=== PATIENT | female | born 1950 | race Caucasian/White ===

== ENCOUNTER 2017-09-04 06:43 | Day surgery (SDC) | payer MEDICARE, OTHER, MEDICAID ==
[2017-09-04] MEDS: CEFAZOLIN 1 GM/50 ML (PMX) 50 ML IVPB ×2 (09:08→11:00)
[2017-09-04] MEDS: LACTATED RINGER'S 1,000 ML IV (10:30)
[2017-09-04] MEDS: LIDOCAINE 1%/EPI 30 ML INJ (11:00)
[2017-09-04] MEDS: HEPARIN 1000 UNITS/ML 10 ML INJ (11:00)
[2017-09-04] MEDS: POLYMYXIN/BACITRACIN 1L IRRIG IRR (11:00)
[2017-09-04] MEDS: FENTAnyl 50 MCG/ML VIAL (11:00)
[2017-09-04] MEDS: MIDAZOLAM 1 MG/ML 2 ML INJ (11:00)
[2017-09-04] MEDS: SOD CHLORIDE 0.9% 500 ML (11:10)
[2017-09-04] MEDS ORDERED: HYDROCODONE/APAP (5/325) TAB PO (12:00)
== END 2017-09-04 14:34 | disposition home or self-care (01) ==
LOC: SDS 06:43
DX: C50.911 Malignant neoplasm of unspecified site of right female breast (principal); I10 Essential (primary) hypertension; E11.9 Type 2 diabetes mellitus without complications; E78.5 Hyperlipidemia, unspecified
CPT/HCPCS: 36561; 76942; 82962; 93306

== ENCOUNTER 2018-01-22 06:36 | Observation (INO) | payer MEDICARE, OTHER ==
[2018-01-22 11:37] LABS: ADD MAN DIFF? NO
[2018-01-22 11:39] LABS: BASOPHILS % 0.5 % (0.0-2.0); EOSINOPHILS % 0.2 % (0.0-7.0); HEMATOCRIT 33.5 % (37.0-47.0); HEMOGLOBIN 10.9 g/dl (12.0-16.0); LYMPHOCYTES # 2.1 10^3/ul (0.8-2.9); LYMPHOCYTES % 33.6 % (15.0-51.0); MEAN CORPUSCULAR HEMOGLOBIN 33.3 pg (29.0-33.0); MEAN CORPUSCULAR HGB CONC 32.5 g/dl (32.0-37.0); MEAN CORPUSCULAR VOLUME 102.4 fl (82.0-101.0); MEAN PLATELET VOLUME 8.4 fl (7.4-10.4); MONOCYTE # 0.4 10^3/ul (0.3-0.9); MONOCYTES % 6.8 % (0.0-11.0); NEUTROPHIL # 3.7 10^3/ul (1.6-7.5); NEUTROPHILS % 58.6 % (39.0-77.0); PLATELET COUNT 389 10^3/UL (140-415); RED BLOOD COUNT 3.27 10^6/ul (4.20-5.40); RED CELL DISTRIBUTION WIDTH 13.6 % (11.5-14.5)
[2018-01-22 11:39] LABS: WHITE BLOOD COUNT 6.3 10^3/ul (4.8-10.8)
[2018-01-22 11:58] LABS: INR 0.99; PROTIME 13.2 Sec (11.9-14.9)
[2018-01-22 11:59] LABS: PARTIAL THROMBOPLASTIN TIME 30.3 Sec (25.0-35.0)
[2018-01-22] MEDS ORDERED: LIDOCAINE 1% (MDV) 20 ML INJ (13:11)
[2018-01-22] MEDS ORDERED: PROPOFOL 20 ML (13:11)
[2018-01-22] MEDS ORDERED: MIDAZOLAM 1 MG/ML 2 ML INJ (13:11)
[2018-01-22] MEDS ORDERED: FENTAnyl 50 MCG/ML VIAL (13:11)
[2018-01-22] MEDS ORDERED: PHENYLephrine (100 MCG/ML) 5ML SYG (13:47)
[2018-01-22] MEDS: ISOSULFAN BLUE 1% 5 ML INJ SC (13:50)
[2018-01-22] MEDS ORDERED: ACETAMINOPHEN 1000MG/100ML IV 100 ML IVPB (15:00)
[2018-01-22] MEDS: ONDANSETRON 4 MG INJ IV (15:08)
[2018-01-22] MEDS: morphine 2 MG INJ IV (15:08)
[2018-01-22] MEDS ORDERED: HYDROmorphONE 1 MG/5 ML IV SYRINGE IV (15:30)
[2018-01-22] MEDS: HYDROmorphONE 1 MG/5 ML IV SYRINGE IV (15:44)
[2018-01-22] MEDS ORDERED: ONDANSETRON 4 MG INJ IV (16:30)
[2018-01-22] MEDS ORDERED: DEXTROSE 50% 50 ML SYRINGE IV ×2 (17:00)
[2018-01-22] MEDS ORDERED: HYDROCODONE/APAP (5/325) TAB PO (17:00)
[2018-01-22] MEDS ORDERED: GLUCOSE GEL 15 GRAM TUBE BUCCAL (17:00)
[2018-01-22] MEDS ORDERED: GLUCOSE GEL 15 GRAM TUBE PO ×2 (17:00)
[2018-01-22] MEDS ORDERED: GLUCAGON 1 MG INJ IM (17:00)
[2018-01-22] MEDS: D5W-0.45 NACL + KCL 20 MEQ 1,000 ML IV ×2 (18:25→22:34)
[2018-01-22] MEDS: INSULIN ASPART [NOVOLOG] 3 ML PEN SC (21:44)
[2018-01-23] MEDS: D5W-0.45 NACL + KCL 20 MEQ 1,000 ML IV ×2 (02:04→12:03)
[2018-01-23] MEDS: ACCU-CHEK XX (02:05)
[2018-01-23] MEDS: PANTOPRAZOLE 40 MG INJ IV (05:41)
[2018-01-23 05:51] LABS: ADD MAN DIFF? NO; BASOPHILS % 0.5 % (0.0-2.0); EOSINOPHILS % 0.7 % (0.0-7.0); HEMATOCRIT 27.8 % (37.0-47.0); LYMPHOCYTES # 2.1 10^3/ul (0.8-2.9); MEAN CORPUSCULAR HEMOGLOBIN 33.7 pg (29.0-33.0); MEAN CORPUSCULAR HGB CONC 32.4 g/dl (32.0-37.0); MEAN CORPUSCULAR VOLUME 104.1 fl (82.0-101.0); MEAN PLATELET VOLUME 8.6 fl (7.4-10.4); MONOCYTE # 0.7 10^3/ul (0.3-0.9); MONOCYTES % 11.1 % (0.0-11.0); NEUTROPHIL # 3.1 10^3/ul (1.6-7.5); NEUTROPHILS % 52.2 % (39.0-77.0); PLATELET COUNT 295 10^3/UL (140-415); RED BLOOD COUNT 2.67 10^6/ul (4.20-5.40); RED CELL DISTRIBUTION WIDTH 13.9 % (11.5-14.5)
[2018-01-23 05:51] LABS: WHITE BLOOD COUNT 5.9 10^3/ul (4.8-10.8)
[2018-01-23 06:16] LABS: ANION GAP 10 (8-16); BLOOD UREA NITROGEN 8 mg/dl (7-20); CALCIUM 7.9 mg/dl (8.4-10.2); CARBON DIOXIDE 25 mmol/L (21-31); CHLORIDE 109 mmol/L (97-110); CREATININE 0.64 mg/dl (0.44-1.00); GLUCOSE 132 mg/dl (70-220); POTASSIUM 3.8 mmol/L (3.5-5.1); SODIUM 140 mmol/L (135-144)
[2018-01-23] MEDS: INSULIN ASPART [NOVOLOG] 3 ML PEN SC ×2 (08:00→12:00)
== END 2018-01-23 14:51 | disposition home or self-care (01) ==
LOC: SDS 06:36 → REC 14:35 → PP2 17:15
PROVIDERS: Surgery Surgical Oncology
DX: D24.1 Benign neoplasm of right breast (principal); N60.11 Diffuse cystic mastopathy of right breast; E11.9 Type 2 diabetes mellitus without complications
CPT/HCPCS: 19301; 71045; 80048; 82962; 85025; 85610; 85730; 88307; 88331; 88342; 99217; G0378